=== PATIENT | female | born 1985 | race Caucasian/White ===

== ENCOUNTER → 2017-10-25 | Outpatient (CLI) | payer OTHER ==
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
== END | disposition home or self-care (01) ==
LOC: RADXRMAIN 12:40
PROVIDERS: ATTEND Physician Assistant
DX: M54.6 Pain in thoracic spine (principal)
CPT/HCPCS: 71046

== ENCOUNTER 2021-07-24 09:01 | Emergency (ER) | payer OTHER ==
[2021-07-24 09:09] VITALS: RESP 20; TEMP 98
[2021-07-24] MEDS ORDERED: SODIUM CHLORIDE 0.9% 1,000 ML IV STA (09:18)
--- NOTE | 2021-07-24 09:58 | ED ---
URI HPI - General Chief Complaint: Upper Respiratory Infection Stated Complaint: revisit - abd pain Time Seen by Provider: 07/24/21 09:10 Source: patient, RN notes reviewed Mode of arrival: ambulatory Limitations: no limitations - History of Present Illness Initial Comments: Patient is a 36-year-old female presents to emergency room complaining of upper respiratory tract symptoms for the past 2 weeks. She notes that she has a mild intermittent cough that does cause mild rib pain. She notes that she's been coughing up a yellow green phlegm/sputum. She'll that she's been to the [facility] several times and tested negative for Covid twice in the past 2 weeks. She notes that she does not have a history of pneumonia, asthma. Patient states that she rarely gets sick. She denied any chest pain headache nausea vomiting diarrhea constipation fever fatigue chills. - Related Data Home Medications Medication Instructions Recorded Confirmed lamoTRIgine [LaMICtal] 100 mg PO DAILY 02/08/16 02/08/16 Previous Rx's Medication Instructions Recorded Acetaminophen-Codeine 300-30mg 1 each PO Q6H PRN #10 tablet 02/08/16 [Tylenol #3] Clindamycin HCl 300 mg PO QID #40 cap 02/08/16 Ibuprofen [Motrin] 800 mg PO Q8HR PRN #30 tab 02/08/16 Levofloxacin [Levaquin] 500 mg PO DAILY #10 tab 07/24/21 Allergies Allergy/AdvReac Type Severity Reaction Status Date / Time Penicillins Allergy Itching Verified 07/24/21 09:09 Review of Systems ROS Statement: Those systems with pertinent positive or pertinent negative responses have been documented in the HPI. ROS Other: All systems not noted in ROS Statement are negative. Past Medical History Past Medical History: No Reported History Additional Past Medical History / Comment(s): anemia History of Any Multi-Drug Resistant Organisms: None Reported Past Surgical History: Tubal Ligation Past Psychological History: Bipolar Smoking Status: Former smoker Past Alcohol Use History: None Reported Past Drug Use History: Marijuana General Exam Limitations: no limitations General appearance: alert, in no apparent distress Head exam: Present: atraumatic, normocephalic, normal inspection Eye exam: Present: normal appearance, PERRL, EOMI. Absent: scleral icterus, conjunctival injection, periorbital swelling ENT exam: Present: normal exam, mucous membranes moist Neck exam: Present: normal inspection Respiratory exam: Present: normal lung sounds bilaterally, wheezes (Bilateral lower lobes.). Absent: respiratory distress, rales, rhonchi, stridor Cardiovascular Exam: Present: regular rate, normal rhythm, normal heart sounds. Absent: systolic murmur, diastolic murmur, rubs, gallop, clicks Extremities exam: Present: normal inspection, full ROM, normal capillary refill. Absent: tenderness, pedal edema, joint swelling, calf tenderness Neurological exam: Present: alert, oriented X3 Psychiatric exam: Present: normal affect, normal mood Skin exam: Present: warm, dry, intact, normal color. Absent: rash Course Vital Signs 07/24/21 07/24/21 09:06 11:44 Temperature 98 F Pulse Rate 79 66 Respiratory 20 20 Rate Blood Pressure 86/58 94/64 O2 Sat by Pulse 99 97 Oximetry Medical Decision Making - Medical Decision Making 36-year-old female complaining of upper respiratory tract symptoms for 2 weeks, green phlegm. Labs, chest x-ray, Covid test, 1 L normal saline ordered. Labs unremarkable. Covid test negative. Chest x-ray shows no acute pulmonary process. Patient most likely experiencing a bronchitis. Antibiotics sent to pharmacy. Case discussed with Dr. Davies, patient discharge home with follow-up primary care. - Lab Data Result diagrams: 07/24/21 09:57 07/24/21 09:57 Lab Results 07/24/21 07/24/21 07/24/21 Range/Units 09:57 09:57 10:06 WBC 8.8 (3.8-10.6) k/uL RBC 4.37 (3.80-5.40) m/uL Hgb 13.5 (11.4-16.0) gm/dL Hct 41.2 (34.0-46.0) % MCV 94.3 (80.0-100.0) fL MCH 30.8 (25.0-35.0) pg MCHC 32.7 (31.0-37.0) g/dL RDW 12.3 (11.5-15.5) % Plt Count 292 (150-450) k/uL MPV 6.9 Neutrophils % 77 % Lymphocytes % 12 % Monocytes % 6 % Eosinophils % 3 % Basophils % 1 % Neutrophils # 6.7 (1.3-7.7) k/uL Lymphocytes # 1.1 (1.0-4.8) k/uL Monocytes # 0.6 (0-1.0) k/uL Eosinophils # 0.3 (0-0.7) k/uL Basophils # 0.1 (0-0.2) k/uL Sodium 138 (137-145) mmol/L Potassium 3.9 (3.5-5.1) mmol/L Chloride 103 (98-107) mmol/L Carbon Dioxide 29 (22-30) mmol/L Anion Gap 6 mmol/L BUN 11 (7-17) mg/dL Creatinine 0.62 (0.52-1.04) mg/dL Est GFR (CKD-EPI)AfAm >90 (>60 ml/min/1.73 sqM) Est GFR (CKD-EPI)NonAf >90 (>60 ml/min/1.73 sqM) Glucose 76 (74-99) mg/dL Calcium 9.1 (8.4-10.2) mg/dL Total Bilirubin 0.5 (0.2-1.3) mg/dL AST 18 (14-36) U/L ALT 9 (4-34) U/L Alkaline Phosphatase 58 (38-126) U/L Total Protein 6.9 (6.3-8.2) g/dL Albumin 3.7 (3.5-5.0) g/dL Coronavirus (PCR) Not Detected (Not Detectd) Disposition Clinical Impression: Bronchitis Disposition: HOME SELF-CARE Condition: Stable Instructions (If sedation given, give patient instructions): Upper Respiratory Infection (ED) Additional Instructions: Please return to the Emergency Department if symptoms worsen or any other concerns. Follow-up primary care 1-2 days per Take antibiotics as prescribed. Get plenty or rest, increase oral fluids. Is patient prescribed a controlled substance at d/c from ED?: No Referrals: Marcus Pizarro DO [Primary Care Provider] - 1-2 days Time of Disposition: 12:00
[2021-07-24 10:20] LABS: Basophils # (A) 0.1 k/uL (0-0.2); Basophils % (A) 1 %; Eosinophils # (A) 0.3 k/uL (0-0.7); Eosinophils % (A) 3 %; HCT 41.2 % (34.0-46.0); HGB 13.5 gm/dL (11.4-16.0); Lymphocytes # (A) 1.1 k/uL (1.0-4.8); Lymphocytes % (A) 12 %; MCH 30.8 pg (25.0-35.0); MCHC 32.7 g/dL (31.0-37.0); MCV 94.3 fL (80.0-100.0); Mean Platelet Volume 6.9; Monocytes # (A) 0.6 k/uL (0-1.0); Monocytes % (A) 6 %; Neutrophils # (A) 6.7 k/uL (1.3-7.7); Neutrophils % (A) 77 %; Platelet Count 292 k/uL (150-450); RBC 4.37 m/uL (3.80-5.40); RDW 12.3 % (11.5-15.5); WBC 8.8 k/uL (3.8-10.6)
[2021-07-24 10:51] LABS: ALT 9 U/L (4-34); AST 18 U/L (14-36); African American GFR (CKD) >90 (>60 ml/min/1.73 sqM); Albumin 3.7 g/dL (3.5-5.0); Alkaline Phosphatase 58 U/L (38-126); Anion Gap 6 mmol/L; Blood Urea Nitrogen 11 mg/dL (7-17); Calcium 9.1 mg/dL (8.4-10.2); Carbon Dioxide 29 mmol/L (22-30); Chloride 103 mmol/L (98-107); Glucose 76 mg/dL (74-99); Non-African American GFR(CKD) >90 (>60 ml/min/1.73 sqM); Potassium 3.9 mmol/L (3.5-5.1); Sodium 138 mmol/L (137-145); Total Bilirubin 0.5 mg/dL (0.2-1.3); Total Protein 6.9 g/dL (6.3-8.2)
--- NOTE | 2021-07-24 11:19 | XR ---
EXAMINATION TYPE: XR chest 2V DATE OF EXAM: 07/24/2021 COMPARISON: Chest x-ray October 25, 2017 HISTORY: Cough for 2 weeks. TECHNIQUE: Frontal and lateral views of the chest are obtained. FINDINGS: Overlying EKG leads. There is no suspicious focal air space opacity, pleural effusion, or p neumothorax seen. The cardiac silhouette size is within normal limits. The osseous structures are intact. IMPRESSION: No acute pulmonary process.
[2021-07-24 11:46] VITALS: BP 94/64; PULSE 66
== END 2021-07-24 12:30 | disposition home or self-care (01) ==
LOC: EC 09:01
DX: J40 Bronchitis, not specified as acute or chronic (principal); F12.90 Cannabis use, unspecified, uncomplicated; F31.9 Bipolar disorder, unspecified; Z79.899 Other long term (current) drug therapy; Z79.1 Long term (current) use of non-steroidal anti-inflammatories (NSAID); Z87.891 Personal history of nicotine dependence; Z88.0 Allergy status to penicillin
CPT/HCPCS: 36415; 71046; 80053; 85025; 87635; 96360; 99283